=== PATIENT | female | born 1945 | race Caucasian/White ===

== ENCOUNTER → 2017-01-03 | Outpatient (CLI) | payer OTHER | LOC: FIMAGING 15:08 | PROVIDERS: ATTEND Internal Medicine | DX: R92.8 Other abnormal and inconclusive findings on diagnostic imaging of breast (principal) | CPT/HCPCS: G0202 ==

== ENCOUNTER → 2017-08-25 | Outpatient (CLI) | payer OTHER | LOC: BMCIMAGING 13:26 | PROVIDERS: ATTEND Family Medicine | DX: S62.102A Fracture of unspecified carpal bone, left wrist, initial encounter for closed fracture (principal) ==

== ENCOUNTER 2017-08-30 08:48 | Observation (INO) | payer OTHER ==
[~2017-08-30 08:48] MED LIST: VANCOMYCIN PHARMACY TO DOSE MISC ONE
[2017-08-30] MEDS ORDERED: VANCOMYCIN PHARMACY TO DOSE MISC ONE (09:12)
[2017-08-30] MEDS ORDERED: LIDOCAINE 1% 2 ML INJ ID PRN (09:13)
[2017-08-30] MEDS ORDERED: LR 1,000 ML IV ONE (09:13)
[2017-08-30] MEDS ORDERED: LIDOCAINE 1% 2 ML INJ ONE (09:16)
[2017-08-30] MEDS ORDERED: VANCOMYCIN 750 MG in D5W 150 ML IV ONE (09:30)
[2017-08-30 10:10] LABS: PLATELET COUNT 223 10^3/uL (150-400)
--- NOTE | 2017-08-30 10:44 | PDHPUP ---
History & Physical Update H&P update statement: This history and physical update is based on an assessment of the patient which was completed after admission or registration (within 24 hours), but prior to the surgery/procedure. H&P update: H&P reviewed & patient examined, no change in patient's condition since H&P completed
[2017-08-30] MEDS ORDERED: MIDAZOLAM 2 MG/2 ML VIAL IVP ONE (10:47)
[2017-08-30] MEDS ORDERED: BUPIVACAINE 0.5% 30 ML SDV ONE (13:16)
--- NOTE | 2017-08-30 13:27 | PDANEPAE ---
ANE History of Present Illness left wrist fracture ANE Past Medical History - Cardiovascular History Hx Hypertension: No Hx Arrhythmias: No Hx Chest Pain: No Hx Coronary Artery / Peripheral Vascular Disease: No Hx CHF / Valvular Disease: No Hx Palpitations: No - Pulmonary History Hx COPD: No Hx Asthma/Reactive Airway Disease: No Hx Recent Upper Respiratory Infection: No Hx Oxygen in Use at Home: No Hx Sleep Apnea: No Sleep Apnea Screening Result - Last Documented: Negative - Neurologic History Hx Cerebrovascular Accident: No Hx Seizures: No Hx Dementia: No - Endocrine History Hx Diabetes: No Hypothyroid: Yes Endocrine History Comment: Hypo thyroid [place] - Renal History Hx Renal Disorders: No - Liver History Hx Hepatic Disorders: No - Neurological & Psychiatric Hx Hx Neurological and Psychiatric Disorders: No - Cancer History Hx Cancer: Yes Cancer History Comment: Breast CA 2006. 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 Lymph node removal 1999. lumpectomy 1999. cholesysectomy . tonsillectomy 1949 ANE Review of Systems Review of Systems: - Exercise capacity METS (RN): 6 METS ANE Patient History - Allergies Allergies/Adverse Reactions: amoxicillin [Amoxicillin] Allergy (Unknown, Verified 11/16/09 17:14) UNK iodine [Iodine] Allergy (Unknown, Verified 11/16/09 17:15) UNK - Home Medications Home Medications: Cytomel 08/29/17 [Last Taken 08/29/17 07:00] Fosamax 5mg 08/29/17 [Last Taken 08/26/17] Minocycline HCl 08/29/17 [Last Taken 08/29/17 20:00] Multivitamin 08/29/17 [Last Taken 2 Days Ago ~08/28/17] Synthroid 08/29/17 [Last Taken 08/29/17 07:00] - NPO status NPO Status: no food or drink >8 hours NPO Since - Liquids (Date): 08/30/17 NPO Since - Liquids (Time): 01:00 NPO Since - Solids (Date): 08/29/17 NPO Since - Solids (Time): 23:00 - Smoking Hx Smoking Status: Former smoker - Family Anes Hx Family Hx Anesthesia Complications: NA ANE Labs/Vital Signs - Labs Result Diagrams: 08/30/17 09:38 08/30/17 09:38 - Vital Signs Blood Pressure: 180/70 Heart Rate: 74 Respiratory Rate: 15 O2 Sat (%): 98 Height: 157.48 cm Weight: 48.081 kg ANE Physical Exam - Airway Neck exam: FROM Mallampati Score: Class 3 Mouth exam: normal dental/mouth exam - Pulmonary Pulmonary: no respiratory distress - Cardiovascular Cardiovascular: regular rate and rhythym - ASA Status ASA Status: II ANE Anesthesia Plan Anesthesia Plan: GA w LMA
[2017-08-30] MEDS ORDERED: MIDAZOLAM 2 MG/2 ML VIAL ONE (13:29)
[2017-08-30] MEDS ORDERED: fentaNYL 100 MCG/2 ML INJ ONE ×3 (13:35→15:51)
[2017-08-30] MEDS ORDERED: PROPOFOL 200 MG/20 ML VIAL ONE (13:35)
[2017-08-30] MEDS ORDERED: HYDROmorphONE/DILAUDID 2 MG/ML INJ ONE (13:35)
[2017-08-30] MEDS ORDERED: DEXAMETHASONE 4 MG/ML VIAL ONE (13:57)
[2017-08-30] MEDS ORDERED: ONDANSETRON 4 MG/2 ML VIAL ONE (13:57)
[2017-08-30] MEDS ORDERED: DEXAMETHASONE 4 MG/ML VIAL IVP PRN (13:58)
[2017-08-30] MEDS ORDERED: ONDANSETRON 4 MG/2 ML VIAL IVP PRN (13:58)
[2017-08-30] MEDS ORDERED: PROMETHAZINE HCL 25 MG/ML INJ IVP PRN (13:58)
[2017-08-30] MEDS ORDERED: OXYCODONE/APAP 5/325 TAB PO PRN (13:58)
[2017-08-30] MEDS ORDERED: HYDROmorphONE/DILAUDID 1 MG/ML INJ IVP PRN (13:58)
[2017-08-30] MEDS ORDERED: NALOXONE HCL 0.4 MG/ML INJ IVP PRN (13:58)
--- NOTE | 2017-08-30 15:36 | POSTANESTH ---
Post Anesthetic Evaluation Cardiovascular Status: Normal, Stable Respiratory Status: Normal, Stable Level of Consciousness/Mental Status: Can Participate in Eval Pain Control: Adequate, Prn Tx Ordered Nausea/Vomiting Control: Adequate, Prn Tx Ordered Complications Possibly Related to Anesthesia: None Noted
[2017-08-30] MEDS: fentaNYL 100 MCG/2 ML INJ IVP PRN ×2 (15:53→16:51)
[2017-08-30] MEDS ORDERED: OXYCODONE/APAP 5/325 TAB ONE (16:40)
[2017-08-30] MEDS: ACETAMINOPHEN 325 MG TAB PO PRN (21:07)
[2017-08-30] MEDS: KETOROLAC 15 MG/1 ML SDV IVP PRN (21:08)
[2017-08-31] MEDS: ACETAMINOPHEN 325 MG TAB PO PRN ×2 (03:46→12:55)
[2017-08-31] MEDS: KETOROLAC 15 MG/1 ML SDV IVP PRN (03:47)
[2017-08-31 07:38] VITALS: RESP 16; O2SAT 98
--- NOTE | 2017-08-31 10:41 | ASMTCMCOM ---
CM Note CM Note Notes: Pt amitted for ORIF of left wrist. CM will follow for DC needs. Date Signed: 08/31/2017 10:41 AM Electronically Signed By:Mara Singh LCSW
[2017-08-31 12:41] VITALS: BP 183/78; PULSE 81; TEMP 97.7
--- NOTE | 2017-08-31 13:36 | SOAPPROG ---
SOAP Progress Note Assessment/Plan: Assessment: POD #1 s/p ORIF L distal radius, held in observation status overnight due to oxygen desaturation in the PACU -she has done well overnight with no desaturation events on room air. She has been hypertensive while awake, however BP dropped back to normal when asleep. I suspect it is 2/2 post op pain and anxiety. Pain has otherwise been controlled well without narcotics -she is safe to d/c home Plan: -D/c home -F/u with me in the office on 09/09 -hand therapy appt to be made -keep LUE elevated -encourage finger ROM 08/31/17 13:32 Subjective: No desaturation overnight per nursing staff. BP was elevated, but dropped back to normal while asleep. No other symptoms when BP elevated. Pain well controlled without any narcotics. She thinks she is doing well and wishes to go home Objective: Vital Signs Temp Pulse Resp BP Pulse Ox 36.5 C 81 16 183/78 H 98 08/31/17 12:00 08/31/17 12:00 08/31/17 12:00 08/31/17 12:00 08/31/17 12:00 Laboratory Results 08/30/17 09:38 08/30/17 09:38 08/30/17 08/31/17 09/01/17 05:59 05:59 05:59 Intake Total 2190 Balance 2190 Gen: NAD, resting in bed Pulm: chest rise equal and unlabored B/L CV:<2s cap refill LUE -splint in place, all digits well perfused -intact AIN/PIN/ulnar -SILT M/U/R -digits well perfused - Time Spent With Patient Time Spent With Patient: 20 min - Pending Discharge Pending Discharge Within 24 Hours: Yes Pending Discharge Date: 09/01/17 Pending Discharge Time: 11:00 ICD10 Worksheet Patient Problems: Problems Problem Status Onset Distal radius fracture, left Acute - ICD10 Problem Qualifiers (1) Distal radius fracture, left
--- NOTE | 2017-09-01 08:43 | ASDISCHSUM ---
Discharge Information Plan Status:Home with No Needs Medically Cleared to Leave: Discharge Date:08/31/2017 02:22 PM CM D/C Disposition:Home, Routine, Self-Care ADT D/C Disposition:Home, Routine, Self-Care Projected Discharge Date:08/31/2017 02:22 PM Transportation at D/C: Discharge Delay Reason: Follow-Up Date:08/31/2017 02:22 PM Discharge Slot: Final Diagnosis: Placement Information Patient Contact Information Contact Name:ISRAEL Relationship:Friend Address: City: [facility] Phone: [facility] Code: Email: Financial Information Financial Class:HMO and PPO Plans Primary Plan Desc:[facility] Primary Plan Number:[id number] Secondary Plan Desc: Secondary Plan Number: Assessment Information [facility] CM Progress Note CM Note CM Note Notes: Pt amitted for ORIF of left wrist. CM will follow for DC needs. Date Signed: 08/31/2017 10:41 AM Electronically Signed By:Mara Singh LCSW Intervention Information
--- NOTE | 2017-09-01 13:17 | GOP ---
[f rep st] OPERATIVE REPORT DATE OF OPERATION: 08/30/2017 SURGEON: Cornel Hackett MD ANESTHESIA: General. PREOPERATIVE DIAGNOSIS: Left two-part intra-articular distal radius fracture. POSTOPERATIVE DIAGNOSIS: Left two-part intra-articular distal radius fracture. PROCEDURE PERFORMED: Open reduction, internal fixation of left two-part intra- articular distal radius fracture. FINDINGS: ESTIMATED BLOOD LOSS: Less than 5 cc. INDICATIONS: This patient is a 72-year-old female who presented to my clinic this week after a fall onto her outstretched left hand. She was seen in an Urgent Care where x-rays were done. X-rays were reviewed by me. The x-rays show a two-part intra-articular distal radius fracture with greater than 3 mm of shortening, greater than 10 degrees dorsal angulation, and an intra- articular split with ulnar styloid fracture. These are all findings of an instability in the distal radius fracture, and for that reason operative management is indicated. I discussed with her the risks and benefits of operative versus nonoperative treatment. Risks of surgery include pain, bleeding, infection, damage to surrounding structures, need for further surgeries, late tendon rupture, nonunion, delayed union, stiffness. She understood the risks and wished to proceed. DESCRIPTION OF PROCEDURE: The patient was seen preoperative holding area. She was given the opportunity ask any questions. All of her questions were answered. Consent was signed. Surgical site was marked. She was then transferred to the operative suite. Great care was taken to transfer her from the [facility] to the operating room table. Care was taken to pad all bony prominences after induction of anesthesia. General anesthesia was induced by the anesthesia team. 2 g of Ancef were given prior to incision. Time-out was called including surgical and anesthesia teams confirming the surgical site and procedure to be performed. The left upper extremity was prepped and draped in the usual sterile fashion. Esmarch was used to exsanguinate the left upper extremity and tourniquet was inflated to 250 mmHg. A standard incision for a modified volar Torsten approach to the distal radius was performed. The FCR sheath was opened. The FCR was retracted and great care was taken to protect all vital structures. The floor of the FCR sheath was opened. The FPL was then flushed ulnar. Parona's space was developed. The pronator quadratus was peeled off in an L-shaped fashion using the [place]. The radial septum was opened. The brachioradialis was visualized and a step-cut was performed. The fracture was then visualized according to [place] approach was continued dorsally. The shaft was grabbed with a bone-holding clamp, pronated away. The fracture was irrigated and cleaned up. The shaft was then replaced and the closed reduction maneuver was performed. The reduction was held with the styloid K-wire. This was checked under fluoroscopy. This reduction was anatomic. Plate was then chosen that covered the bone. A screw was placed in the shaft hole and the position of the plate was then checked under fluoroscopy. We were happy with the position of our plate. Then began to place the distal locking screws in the radio sales account executive's recommended fashion. Placed the wires to hold the reduction. Checked the positions of the wires. These were well proximal to the subchondral surface. The distal locking pegs were then placed. A polyaxial screw was then placed into the radial styloid. These were all placed to ensure that the screws were short of the articular surface. Two shaft lockers were then placed. Final reduction was checked under fluoroscopy. We were very happy with the anatomic reduction. The wrist had full range of motion. The wound was then irrigated copiously in the standard fashion. A 0 Vicryl was then used to close the tendon of the pronator quadratus over the plate to prevent tendon irritation. The FCR sheath was then closed and then the wound was closed in layers, final layer with a 4-0 Monocryl subcuticular stitch. Steri-Strips were applied. A sterile dressing was applied and a volar splint was applied. The patient tolerated the procedure well, was awakened from general anesthesia in stable condition. IMPLANTS USED: [employer] Distal Radius Plating System. POSTOPERATIVE CONDITION: Stable. POSTOPERATIVE PLAN: The patient will follow up in clinic in about 10-14 days. She will have an appoint with the hand therapist in about a week, and take her out of the splint and place her in a custom-molded removable splint, where she can begin gentle range of motion. She was encouraged to move her fingers and wrist. I recommended to start vitamin C 500 mg daily to prevent CRPS. ADDENDUM: Of note, the patient after her surgery, I was notified by the PACU and the anesthesiologist that she was not maintaining her oxygen saturation on room air in the PACU. When I spoke to the PACU staff at that point, she was already maintaining her saturations at 95% on room air. However, due to concern for the desaturation event, I spoke with the anesthesiologist on the case, who recommended that she be observed overnight. Thus, the patient was placed in observation for observation of oxygen saturation and would be evaluated the following day to be discharged home if there were no other concerning events. /[id number]/MODL MTDD
== END 2017-08-31 14:22 | disposition home or self-care (01) ==
LOC: FSGY 08:48 → F3N 20:07
PROVIDERS: ADMIT Orthopaedic Surgery Hand Surgery; ATTEND Orthopaedic Surgery Hand Surgery
PROC: 0PSJ04Z Reposition Left Radius with Internal Fixation Device, Open Approach (ICD-10-PCS; principal; 2017-08-30 11:45)
DX: J95.89 Other postprocedural complications and disorders of respiratory system, not elsewhere classified (principal); I97.3 Postprocedural hypertension; R09.02 Hypoxemia; S52.572A Other intraarticular fracture of lower end of left radius, initial encounter for closed fracture; W19.XXXA Unspecified fall, initial encounter; E06.3 Autoimmune thyroiditis; M81.0 Age-related osteoporosis without current pathological fracture; Z85.3 Personal history of malignant neoplasm of breast
CPT/HCPCS: 25608; G0378; 84480-90; C1713; J1100; J1170; J1885; J2250; J2405; J2704; J3010; J3370

== ENCOUNTER → 2017-09-09 | Outpatient (CLI) | payer OTHER | LOC: BMCIMAGING 09:07 | PROVIDERS: ATTEND Orthopaedic Surgery Hand Surgery | DX: S62.102D Fracture of unspecified carpal bone, left wrist, subsequent encounter for fracture with routine healing (principal) ==

== ENCOUNTER → 2017-10-03 | Outpatient (CLI) | payer OTHER | LOC: BMCIMAGING 14:17 | PROVIDERS: ATTEND Orthopaedic Surgery Hand Surgery | DX: S59.292D Other physeal fracture of lower end of radius, left arm, subsequent encounter for fracture with routine healing (principal) ==

== ENCOUNTER → 2017-10-24 | Outpatient (CLI) | payer OTHER | LOC: BMCIMAGING 15:06 | PROVIDERS: ATTEND Orthopaedic Surgery Hand Surgery | DX: S52.532D Colles' fracture of left radius, subsequent encounter for closed fracture with routine healing (principal) ==

== ENCOUNTER → 2018-07-31 | Outpatient (CLI) | payer OTHER | LOC: FIMAGING 15:39 | PROVIDERS: ATTEND Internal Medicine | DX: Z12.31 Encounter for screening mammogram for malignant neoplasm of breast (principal); Z85.3 Personal history of malignant neoplasm of breast ==